=== PATIENT | female | born 1990 | race Native Hawaiian/Other Pacific Islander ===

== ENCOUNTER 2020-04-11 07:40 | Outpatient (CLI) | payer OTHER | END 2020-04-11 19:42 | disposition home or self-care (01) | LOC: LABW 07:40 | DX: E03.8 Other specified hypothyroidism (principal) | CPT/HCPCS: 36415; 84443 ==

== ENCOUNTER 2021-11-19 07:53 | Outpatient (CLI) | payer OTHER ==
[2021-11-19 08:16] LABS: PLATELET COUNT 364 K/uL (152-353)
[2021-11-19 08:20] LABS: POTASSIUM 4.6 mmol/L (3.6-5.2)
== END 2021-11-19 18:58 | disposition home or self-care (01) ==
LOC: LABW 07:53
PROVIDERS: ATTEND Nurse Practitioner Family
DX: D50.9 Iron deficiency anemia, unspecified (principal); R53.83 Other fatigue; E53.8 Deficiency of other specified B group vitamins; E55.9 Vitamin D deficiency, unspecified; E78.2 Mixed hyperlipidemia
CPT/HCPCS: 36415; 80053; 80061; 82306; 82607; 82728; 82746; 83540; 83550; 84443; 85027

== ENCOUNTER 2022-10-20 17:04 | Outpatient (CLI) | payer OTHER | END 2022-10-20 19:12 | disposition home or self-care (01) | LOC: LABW 17:04 | PROVIDERS: ATTEND Nurse Practitioner Family | DX: E03.8 Other specified hypothyroidism (principal) | CPT/HCPCS: 36415; 84436; 84443; 84481 ==

== ENCOUNTER 2023-02-12 18:18 | Outpatient (CLI) | payer OTHER | END 2023-02-12 23:00 | disposition home or self-care (01) | LOC: LAB 18:18 | PROVIDERS: ATTEND Family Medicine | DX: N94.6 Dysmenorrhea, unspecified (principal) | CPT/HCPCS: 36415; 82670; 83001; 83002; 84402; 84403; 84436; 84481 ==

== ENCOUNTER 2023-02-13 09:47 | Outpatient (CLI) | payer OTHER | END 2023-02-13 19:18 | disposition home or self-care (01) | LOC: LAB 09:47 | PROVIDERS: ATTEND Nurse Practitioner Family | DX: M25.50 Pain in unspecified joint (principal); D50.8 Other iron deficiency anemias; R73.9 Hyperglycemia, unspecified | CPT/HCPCS: 36415; 82728; 83036; 83540; 83550; 84550; 85652; 86038; 86140; 86431 ==

== ENCOUNTER 2023-03-23 15:57 | Outpatient (CLI) | payer OTHER | END 2023-03-23 19:13 | disposition home or self-care (01) | LOC: US 15:57 | PROVIDERS: ATTEND Nurse Practitioner Family | DX: N83.202 Unspecified ovarian cyst, left side (principal) ==

== ENCOUNTER 2023-06-09 12:22 | Outpatient (CLI) | payer OTHER | END 2023-06-09 20:16 | disposition home or self-care (01) | LOC: LABW 12:22 | PROVIDERS: ATTEND Family Medicine | DX: E03.8 Other specified hypothyroidism (principal); E11.65 Type 2 diabetes mellitus with hyperglycemia | CPT/HCPCS: 83036; 84436; 84439; 84443 ==